=== PATIENT | female | born 1990 | race Caucasian/White ===

== ENCOUNTER 2016-07-21 07:42 | Inpatient (IN) | payer OTHER ==
[2016-07-21] MEDS ORDERED: RINGERS SOLUTION,LACTATED 1,000 ML IV PRN (08:30)
[2016-07-21] MEDS ORDERED: OXYTOCIN/DEXTROSE 5%-WATER 30 UNITS/500 ML BAG IV ONE ×2 (08:30→18:11)
[2016-07-21] MEDS ORDERED: LIDOCAINE HCL 50 ML VIAL PERI PRN (08:30)
[2016-07-21] MEDS ORDERED: RINGERS SOLUTION,LACTATED 1,000 ML IV ONE (08:30)
[2016-07-21] MEDS ORDERED: DEXTROSE 5%-LACTATED RINGERS 1,000 ML IV PRN (09:02)
--- NOTE | 2016-07-21 10:40 | PN ---
Progess Note - Interim Narrative: 07/21/16 10:38 Subjective-starting to feel her contractions Objective- SVE- /s to, clear fluid FHTs- 135, moderate variability, positive accelerations, no decelerations Esmond- every 2-5 minutes Assessment and plan- Labor-augmentation with Pitocin heart tones-Category 1 GBS status-negative Continue current plan of care.
[2016-07-21] MEDS ORDERED: ONDANSETRON HCL/PF 2 MG/ML VIAL IV PRN (13:06)
[2016-07-21] MEDS ORDERED: NALOXONE HCL 1 MG/1 ML SYRG IV PRN (13:06)
[2016-07-21] MEDS ORDERED: BUPIVACAINE HCL/0.9 % NACL/PF 250 ML EP PRN (13:06)
[2016-07-21] MEDS ORDERED: BUPIVACAINE HCL/PF 30 ML VIAL EP ONE (13:29)
--- NOTE | 2016-07-21 14:03 | OR ---
Anesthesia Procedure Note - Anesthesia Procedure Note Date of Service: 07/21/16 Narrative: Vital Signs - Last Taken Temp 36.6 C 07/21/16 13:33 Pulse 83 07/21/16 13:33 Resp 20 07/21/16 13:33 BP 133/79 07/21/16 13:33 Pulse Ox 99 07/21/16 13:33 07/21/16 14:02 ANESTHESIA PROCEDURE NOTE Date of Procedure: 07/21/2016. Time of procedure: 1340. Performed by: Jim Hussein CRNA Software Build Engineer: None. Preprocedure diagnosis: Active labor. Post procedure diagnosis: Same. Procedure: Insertion of labor epidural. Indications: The patient is a 25 -year-old female in active labor requesting labor epidural for pain management. Findings: See below. Details of the procedure: The patient was placed in a sitting position. DuraPrep as well as Betadine swabs 3 was applied to the patient's back. Patient was then draped in a sterile fashion. Lidocaine 1% was infiltrated to the skin and subcutaneous tissues at the level of the L3-4 interspace. The epidural space was identified using a 18-gauge Tuohy needle with loss-of- resistance technique. Epidural catheter was inserted to a depth of 10 centimeters at skin. Negative test dose was elicited using 3 mL of 1.5% preservative-free lidocaine plus epinephrine 1 200,000. The epidural catheter was then taped and secured in place. A loading dose of 8 mL of 0.25% preservative-free bupivacaine was administered to the epidural catheter after negative aspiration for blood and CSF. EBL: Minimal. Fluids: N/A. Specimen: N/A. Post procedure condition: The patient tolerated the procedure well. No complications were noted. Thank you for this consultation. Jim Hussein CRNA
[2016-07-21] MEDS ORDERED: HYDROCORTISONE 30 APPL TUBE TP PRN (18:11)
[2016-07-21] MEDS ORDERED: GLYCERIN/WITCH HAZEL LEAF 40 APPL BOX TP PRN (18:11)
[2016-07-21] MEDS ORDERED: BENZOCAINE/MENTHOL 81 SPRAY CAN TP PRN (18:11)
[2016-07-21] MEDS ORDERED: oxyCODONE HCL/ACETAMINOPHEN 1 TAB TABLET PO PRN (18:11)
[2016-07-21] MEDS ORDERED: SENNOSIDES 8.6 MG TABLET PO PRN (18:11)
[2016-07-21] MEDS ORDERED: BISACODYL 10 MG SUPP.RECT RC PRN (18:11)
[2016-07-21] MEDS ORDERED: MEDROXYPROGESTERONE ACET 150 MG/ML SYRG IM ONE (18:11)
--- NOTE | 2016-07-21 18:16 | OR ---
Operative Report - Dictated Report Narrative: Spontaneous Vaginal Delivery Viable female with APGARS of 9 at 1 minute and 9 at 5 minutes. Time of delivery was 1741. Presentation was BRI. The anterior and posterior shoulder shoulders delivered without difficulty followed by the remainder of the baby.On the maternal abdomen and dried and stimulated. The cord was clamped and cut after approximately 60 seconds. Weight: 3200 g and 7 pounds 0.8 ounces Placenta was delivered spontaneously and intact. Vaginal abrasion. Estimated blood loss: 400 ml Mother and baby tolerated delivery well. History for Definition: * The number of deliveries resulting in a live the patient experienced prior to current hospitalization * The previous delivery of live twins or any live multiple gestation is considered one live event. *If primagravida or nulliparous is documented select zero for the number of previous live births. Live Events: 1
[2016-07-21] MEDS: IBUPROFEN 800 MG TABLET PO PRN (20:45)
[2016-07-21] MEDS: oxyCODONE HCL/ACETAMINOPHEN 1 TAB TABLET PO PRN (20:45)
[2016-07-21] MEDS ORDERED: FLU VACC QS2016-17 36MOS UP/PF 60 MCG/0.5 ML DISP.SYRIN IM ONE (21:00)
[2016-07-21] MEDS: DOCUSATE SODIUM 100 MG CAPSULE PO SCH (21:05)
[2016-07-22] MEDS: oxyCODONE HCL/ACETAMINOPHEN 1 TAB TABLET PO PRN (04:09)
[2016-07-22] MEDS: IBUPROFEN 800 MG TABLET PO PRN ×2 (04:10→22:15)
[2016-07-22] MEDS: DOCUSATE SODIUM 100 MG CAPSULE PO SCH ×2 (12:28→20:53)
--- NOTE | 2016-07-22 13:08 | PN ---
Subjective - Date and Time Seen Date: 07/22/16 Subjective Narrative: day 1, s/p doing well. passed a small clot. normal lochia now. bottle feeding. pain controlled. Objective - Vitals Vitals: Last Vital Signs Temp 36.0 C L 07/22/16 12:35 Pulse 83 07/22/16 12:35 Resp 18 07/22/16 12:35 BP 113/68 07/22/16 12:35 Pulse Ox 98 07/22/16 12:35 - Exam Constitutional: Present: Alert, Oriented x3, Cooperative Respiratory: Present: no respiratory distress Cardiovascular/Chest: Present: normal peripheral pulses Abdomen: Present: soft, nondistended, other - fundum firm and below umbilicus Extremity: Present: normal range of motion, no calf tenderness, lower extremity edema - 1+ Skin Exam: Present: normal color, warm/dry, no cyanosis Eye contact: Present: cooperative, good eye contact, normal speech Cauti Physician Documentation - Urinary Catheter Management Urethral ([place]) Date of Insertion: 07/21/16 Time of Insertion: 14:39 Assessment/Plan Plan Narrative: A: day 1, s/p stable. Plan: routine care. ambulation encouraged. Mario Marrufo MD
--- NOTE | 2016-07-23 08:05 | PN ---
Progess Note - Interim Narrative: 07/23/16 08:04 progress note Subjective: The patient is doing well. She is ambulating, voiding, tolerating by mouth. She has minimal pain and moderate lochia. Objective: General: No acute distress Abdomen: Soft, nontender, fundus is firm just below the umbilicus Extremities: minimal edema, nontender to palpation Assessment and plan: day 2 Feeding: bottle Pain: Controlled with by mouth medication control: depo-Provera Routine care.
[2016-07-23 09:09] VITALS: BP 110/74
[2016-07-23] MEDS: DOCUSATE SODIUM 100 MG CAPSULE PO SCH (10:51)
[2016-07-23] MEDS ORDERED: MEDROXYPROGESTERONE ACET 150 MG/ML SYRG IM ONE (12:00)
== END 2016-07-23 12:00 | disposition home or self-care (01) | DRG 775 ==
LOC: OB 07:42
PROVIDERS: ADMIT Obstetrics & Gynecology Gynecologic Oncology; ATTEND Obstetrics & Gynecology Gynecologic Oncology
PROC: 10E0XZZ Delivery of Products of Conception, External Approach (ICD-10-PCS; principal; 2016-07-21)
PROC: 4A1HXCZ Monitoring of Products of Conception, Cardiac Rate, External Approach (ICD-10-PCS; 2016-07-21)
DX: O42.92 Full-term premature rupture of membranes, unspecified as to length of time between rupture and onset of labor (principal); O99.334 Smoking (tobacco) complicating childbirth; J45.20 Mild intermittent asthma, uncomplicated; Z37.0 Single live birth; Z3A.37 37 weeks gestation of pregnancy; Z23 Encounter for immunization
CPT/HCPCS: 59025; 90686; G0008